=== PATIENT | male | born 1990 | race American Indian/Alaskan Native ===

== ENCOUNTER 2019-10-09 13:52 | Emergency (ER) | payer SELFPAY ==
[2019-10-09 14:15] VITALS: BP 98/70
--- NOTE | 2019-10-09 14:18 | Emergency Department Report ---
Chief Complaint: Eye Problems Stated Complaint: LFT EYE PINK Time Seen by Provider: 10/09/19 14:13 - HPI History of Present Illness: This is a 28 y.o. M. that presents to the ER with left eye redness and itching for 1 week. Applied OTC eye drops which improved symptoms for 1-2 days. Reports symptoms returned 2-3 days ago and no relief with eye drops. Denies grinding sensation, photophobia, visual changes. Denies any fever, chills, headache, nausea, vomiting, chest pain or SOB. - ROS Review of Systems: ROS: Stated complaint: Left eye redness and pruritus Other details as noted in HPI Constitutional: denies: chills, fever HEENT: left eye redness and pruritus Respiratory: denies: cough, shortness of breath, wheezing Cardiovascular: denies: chest pain, palpitations Gastrointestinal: denies: abdominal pain, nausea, diarrhea Musculoskeletal: denies: joint swelling, arthralgia Skin: denies: rash, lesions Neurological: denies: headache, weakness, paresthesias Psychiatric: denies: anxiety, depression - Exam Vital Signs: Vital Signs 10/09/19 14:13 Temperature 99.6 F Pulse Rate 81 Respiratory 16 Rate Blood Pressure 98/70 [Left] O2 Sat by Pulse 99 Oximetry Physical Exam: - General Limitations: No Limitations General appearance: alert, in no apparent distress - Head Head exam: Present: atraumatic, normocephalic - Eye Eye exam: Present: normal appearance - ENT ENT exam: Present: injected left eye, crusting upper eyelash, PERRL, EOMI bilaterally, mucous membranes moist - Neck Neck exam: Present: normal inspection, full ROM. Absent: tenderness, lymphadenopathy - Respiratory Respiratory exam: Present: normal lung sounds bilaterally. Absent: respiratory distress - Cardiovascular Cardiovascular Exam: Present: regular rate, normal rhythm. Absent: systolic murmur, diastolic murmur, rubs, gallop - GI/Abdominal GI/Abdominal exam: Present: soft, normal bowel sounds - Rectal Rectal exam: Present: deferred - Extremities Exam Extremities exam: Present: normal inspection, full ROM. Absent: tenderness - Neurological Exam Neurological exam: Present: alert, oriented X3 - Psychiatric Psychiatric exam: Present: normal affect, normal mood - Skin Skin exam: Present: warm, dry, intact, normal color. Absent: rash MSE screening note: Focused history and physical exam performed. Due to findings the following was ordered: ED Medical Decision Making - Medical Decision Making 28-year-old male that presents with injected left eye for 1 week. Patient is stable and was examined by me. Denies grinding sensation, photophobia. The left eye is injected, crusting to upper eyelid, PEERL, EOMI. Start erythromycin for conjunctivitis of left eye. Patient was instructed to Follow-up with a primary care doctor or Travel Registered Nurse [facility] in 3-5 days or if symptoms worsen and continue return to emergency room as soon as possible. At time of discharge, the patient does not seem toxic or ill in appearance. No acute signs of distress noted. Patient agrees to discharge treatment plan of care. No further questions noted by the patient. ED Disposition for MSE Clinical Impression: Conjunctivitis Qualifiers: Conjunctivitis type: acute Acute conjunctivitis type: bacterial Laterality: left Qualified Code(s): H10.32 - Unspecified acute conjunctivitis, left eye Disposition: TO HOME OR SELFCARE Is pt being admited?: No Condition: Stable Instructions: Conjunctivitis (ED) Prescriptions: Erythromycin [Erythromycin Ophth Oint] 10 applic OP QID 7 Days #1 tube Referrals: [facility] [Outside] - 3-5 Days MARGARET VANN MD [Staff Physician] - 3-5 Days [facility] [Provider Group] - 3-5 Days AYDEN BREWER MD [Staff Physician] - 3-5 Days Time of Disposition: 15:07
== END 2019-10-09 15:07 | disposition home or self-care (01) ==
LOC: ED 13:52
DX: H10.9 Unspecified conjunctivitis (principal)
CPT/HCPCS: 99281